=== PATIENT | female | born 1970 | race Caucasian/White ===

== ENCOUNTER → 2017-04-03 | Outpatient (CLI) | payer OTHER | LOC: BMCIMAGING 10:05 | PROVIDERS: ATTEND Family Medicine | DX: N63 Unspecified lump in breast (principal) | CPT/HCPCS: G0204 ==

== ENCOUNTER 2018-04-19 19:04 | Inpatient (IN) | payer OTHER ==
--- NOTE | 2018-04-19 19:06 | EDPHY ---
H & P Time Seen by Provider: 04/19/18 19:06 HPI/ROS: CHIEF COMPLAINT: Right upper extremity swelling HISTORY OF PRESENT ILLNESS: The patient presents the ED with a 3 day history of right upper extremity swelling and tenderness. The patient denies history of fall or trauma. She denies any acute numbness or weakness. She denies chest pain or shortness of breath. She has no prior history of PE or DVT She has no risk factors for an upper extremity DVT. The patient takes no regular medications. She denies significant past medical history. REVIEW OF SYSTEMS: A comprehensive 10 point review of systems is otherwise negative aside from elements mentioned in the history of present illness. Source: Patient Exam Limitations: No limitations - Medical/Surgical History PMH: Past medical history: Noncontributory - Family History Significant Family History: No pertinent family hx - Social History Smoking Status: Never smoked - Physical Exam Exam: General Appearance: Alert, no distress Eyes: Pupils equal and round no pallor or injection ENT, Mouth: Mucous membranes moist Respiratory: There are no retractions, lungs are clear to auscultation Cardiovascular: Regular rate and rhythm Gastrointestinal: Abdomen is soft and nontender, no masses, bowel sounds normal Neurological: 5/5 strength in normal sensory function noted in all 4 extremities Skin: Warm and dry, no rashes Musculoskeletal: Neck is supple nontender Extremities: Mild asymmetric edema noted in the right biceps area. 2+ radial and ulnar pulses noted bilaterally Psychiatric: Patient is oriented X 3, there is no agitation Constitutional: Initial Vital Signs Temperature (C) 36.9 C 04/19/18 19:05 Heart Rate 74 04/19/18 19:05 Respiratory Rate 16 04/19/18 19:05 Blood Pressure 148/79 H 04/19/18 19:05 O2 Sat (%) 96 04/19/18 19:05 O2 Delivery Mode Room Air Allergies/Adverse Reactions: shellfish derived Allergy (Verified 04/19/18 19:08) Home Medications: Medication Instructions Recorded Citalopram Hydrobromide 5 mg PO DAILY 04/19/18 [Citalopram HBr] Ibuprofen [Motrin (*)] 200 - 400 mg PO TID PRN 04/19/18 Levothyroxine Sodium 88 mcg PO DAILY 04/19/18 Norethindrone-E.estradiol-Iron 1 each PO HS 04/19/18 [Blisovi Fe 1-20 Tablet] buPROPion XL [Wellbutrin Xl] 150 mg PO DAILY 04/19/18 Medical Decision Making - Diagnostics Imaging Results: Imaging Impressions Extremity Venous Study 04/19/18 19:16 Impression: Occlusive clot involving the subclavian vein and the axillary vein , with slow flow in the subsequent brachial and basilic veins. Thoracic outlet syndrome is suspected. Recommendation: Full systemic anticoagulation. The patient might be a candidate for catheter-directed venography and lysis as well as 1st rib removal. Findings and recommendations discussed with Andrés Hastings M.D., at 9:00 p.m., on April 19, 2018. Final report concurs with initial preliminary interpretation. ED Course/Re-evaluation: The patient presents the emergency department with significant swelling and pain involving her right upper extremity. The patient denies any chest pain or shortness of breath. She denies prior history of PE or DVT. The patient was noted to be neurovascularly intact in the upper extremity. The patient was taken for right upper extremity ultrasound which demonstrates extensive thrombosis throughout the right upper extremity. The radiologist does feel this is consistent with a thoracic outlet syndrome. She does feel the patient would benefit from a venogram and clot lysis. [facility] her upper extremity DVT given her pain and swelling. Patient will be started on IV heparin and admitted to the hospitalist service. Consultation was made with Dr. Eduardo Chester from the hospitalist service at 9 :10 p.m.. The patient was started on IV heparin in the emergency department. The patient should be NPO after midnight per Dr. Tavera's recommendation. Differential Diagnosis: Differential diagnosis considered includes DVT, pulmonary embolism, thoracic outlet syndrome, arterial thrombosis, cellulitis, abscess - Data Points Laboratory Results: Laboratory Results 04/19/18 21:04 04/19/18 21:04 04/19/18 04/19/18 04/19/18 21:04 21:04 21:04 WBC 11.74 10^3/uL H 10^3/uL (3.80-9.50) RBC 4.34 10^6/uL 10^6/uL (4.18-5.33) Hgb 12.7 g/dL g/dL (12.6-16.3) Hct 37.9 % L % (38.0-47.0) MCV 87.3 fL fL (81.5-99.8) MCH 29.3 pg pg (27.9-34.1) MCHC 33.5 g/dL g/dL (32.4-36.7) RDW 13.1 % % (11.5-15.2) Plt Count 318 10^3/uL 10^3/uL (150-400) MPV 9.8 fL fL (8.7-11.7) Neut % (Auto) 69.7 % % (39.3-74.2) Lymph % (Auto) 23.7 % % (15.0-45.0) [place] % (Auto) 4.8 % % (4.5-13.0) Eos % (Auto) 1.1 % % (0.6-7.6) Baso % (Auto) 0.4 % % (0.3-1.7) Nucleat RBC Rel Count 0.0 % % (0.0-0.2) Absolute Neuts (auto) 8.19 10^3/uL H 10^3/uL (1.70-6.50) Absolute Lymphs (auto) 2.78 10^3/uL 10^3/uL (1.00-3.00) Absolute Monos (auto) 0.56 10^3/uL 10^3/uL (0.30-0.80) Absolute Eos (auto) 0.13 10^3/uL 10^3/uL (0.03-0.40) Absolute Basos (auto) 0.05 10^3/uL 10^3/uL (0.02-0.10) Absolute Nucleated RBC 0.00 10^3/uL 10^3/uL (0-0.01) Immature Gran % 0.3 % % (0.0-1.1) Immature Gran # 0.03 10^3/uL 10^3/uL (0.00-0.10) PT 13.6 SEC SEC (12.0-15.0) INR 1.02 (0.83-1.16) APTT 35.1 SEC SEC (23.0-38.0) Sodium 139 mEq/L mEq/L (135-145) Potassium 4.0 mEq/L mEq/L (3.3-5.0) Chloride 105 mEq/L mEq/L (97-110) Carbon Dioxide 26 mEq/l mEq/l (22-31) Anion Gap 8 mEq/L mEq/L (8-16) BUN 10 mg/dL mg/dL (7-23) Creatinine 0.7 mg/dL mg/dL (0.6-1.0) Estimated GFR > 60 Glucose 96 mg/dL mg/dL (70-100) Calcium 9.5 mg/dL mg/dL (8.5-10.4) Medications Given: Discontinued Medications Heparin Sodium (Porcine) (Heparin Injection) 0 unit IVP EDNOW ONE Stop: 04/19/18 21:10 Last Admin: 04/19/18 21:36 Dose: 7,780 units Heparin Sodium (Porcine) (Heparin 50 Units/Ml (Premix)) 500 mls @ 0 mls/hr IV EDNOW ONE; Per Protocol PRN Reason: Protocol Stop: 04/19/18 21:10 Last Admin: 04/19/18 21:37 Dose: 500 mls Departure - Departure Disposition: [facility] Inpatient Acute Clinical Impression: DVT of right axillary vein, acute Condition: Fair
[2018-04-19] MEDS ORDERED: HEPARIN/DEXTROSE 500 ML IV ONE (21:09)
[2018-04-19] MEDS ORDERED: HEPARIN 10,000 UNIT/10 ML MDV (1,000 UNIT/ML) IVP ONE (21:09)
[2018-04-19 21:14] LABS: PLATELET COUNT 318 10^3/uL (150-400)
[2018-04-19 21:25] LABS: INR 1.02 (0.83-1.16); PROTIME(PATIENT) 13.6 SEC (12.0-15.0)
[2018-04-19] MEDS ORDERED: LORazepam 0.5 MG TAB PO PRN (22:05)
[2018-04-19] MEDS ORDERED: ACETAMINOPHEN 325 MG TAB PO PRN (22:05)
[2018-04-19] MEDS ORDERED: HYDROCODONE/APAP 5/325 TAB PO PRN (22:05)
[2018-04-19] MEDS ORDERED: ONDANSETRON 4 MG/2 ML VIAL IVP PRN (22:05)
[2018-04-19] MEDS ORDERED: HEPARIN 10,000 UNIT/10 ML MDV (1,000 UNIT/ML) IVP PRN (22:07)
[2018-04-19] MEDS ORDERED: HEPARIN/DEXTROSE 500 ML IV SCH (22:15)
--- NOTE | 2018-04-19 23:55 | PDGENHP ---
History and Physical - Chief Complaint Right arm pain and swelling - History of Present Illness Source-patient provides history appears reliable. EMR was reviewed and case discussed with ED provider. HPI - pleasant 47-year-old female with past medical history significant for hypothyroidism, anxiety and depression who presents emergency department today with complaints of 3 days history of worsening right upper extremity swelling and pain. Patient denies any injury or trauma. She denies any numbness tingling or weakness on the right side. Patient states that she initially had swelling all the way down to her hands this seemed to the improve minimally and then subsequently on had noticeable increase in swelling over her right axilla and chest. Patient denies any shortness of breath, chest pain, palpitations. Patient does note that she recently restarted her OCP for hormone regulation. History Information - Allergies/Home Medication List Allergies/Adverse Reactions: shellfish derived Allergy (Verified 04/19/18 19:08) Home Medications: Citalopram Hydrobromide [Citalopram HBr] 5 mg PO DAILY 04/19/18 [Last Taken ] Ibuprofen [Motrin (*)] 200 - 400 mg PO TID PRN 04/19/18 [Last Taken 04/18/18] Levothyroxine Sodium 88 mcg PO DAILY 04/19/18 [Last Taken 04/19/18] Norethindrone-E.estradiol-Iron [Blisovi Fe 1-20 Tablet] 1 each PO HS 04/19/18 [ Last Taken 04/18/18] buPROPion XL [Wellbutrin Xl] 150 mg PO DAILY 04/19/18 [Last Taken 04/19/18] I have personally reviewed and updated: family history, medical history, social history, surgical history - Past Medical History Additional medical history: Hypothyroidism, anxiety and depression, hormone replacement - Surgical History Additional surgical history: 2014, microdiskectomy L5-S1. age 20s foot surgery, . 2002 in 2006 - Family History Additional family history: Negative for DVT or PE. Diabetes, thyroid disorder and CAD. - Social History Smoking Status: Never smoked Alcohol Use: Occasionally Drug Use: None Additional social history: Patient is and lives with her and 2 children. Cor status-full. Review of Systems Review of Systems: ROS: 10pt was reviewed & negative except for what was stated in HPI & below Constitutional: Denies: chills, fever EENMT: Reports: other (Wears glasses). Denies: double vision, sore throat Cardiac: Reports: no symptoms Respiratory: Reports: no symptoms. Denies: cough, shortness of breath Gastrointestinal: Reports: no symptoms Genitourinary: Reports: no symptoms Muscolosketal: Reports: no symptoms Skin: Reports: no symptoms Neurological: Reports: headache (Mild). Denies: numbness, tingling, weakness Physical Exam Physical Exam: Selected Entries 04/19/18 19:05 Blood Pressure Automatic Method Heart Rate 74 Respiratory 16 Rate O2 Sat (%) 96 Temperature (C) 36.9 C Blood Pressure 148/79 H Mean Arterial 102 H Pressure (MAP) O2 Delivery Room Air Mode Temperature Oral Source Temp Pulse Resp BP Pulse Ox 36.6 C 72 16 153/85 H 95 04/19/18 22:15 04/19/18 22:15 04/19/18 22:15 04/19/18 22:15 04/19/18 22:15 Constitutional: no apparent distress Eyes: PERRL, anicteric sclera, EOMI, No scleral injection Ears, Nose, Mouth, Throat: moist mucous membranes, No poor dentition Cardiovascular: regular rate and rhythym, no murmur, rub, or gallop, pulses symmetric bilaterally, No edema Peripheral Pulses: 2+: dorsalis-pedis (R), dorsalis-pedis (L) Respiratory: no respiratory distress, no rales or rhonchi, clear to auscultation , No respiratory distress Gastrointestinal: normoactive bowel sounds, soft, non-tender abdomen, no palpable masses, No distension Genitourinary: no bladder tenderness, No michelle in urethra Skin: warm, normal color, no rashes or abrasions Musculoskeletal: full muscle strength, other (right arm swelling), No generalized weakness Neurologic: AAOx3, sensation intact bilaterally, No facial droop Psychiatric: interacting appropriately, not anxious, not encephalopathic, thought process linear Lab Data & Imaging Review 04/19/18 21:04 04/19/18 21:04 WBC 11.74 10^3/uL (3.80-9.50) H 04/19/18 21:04 RBC 4.34 10^6/uL (4.18-5.33) 04/19/18 21:04 Hgb 12.7 g/dL (12.6-16.3) 04/19/18 21:04 Hct 37.9 % (38.0-47.0) L 04/19/18 21:04 MCV 87.3 fL (81.5-99.8) 04/19/18 21:04 MCH 29.3 pg (27.9-34.1) 04/19/18 21:04 MCHC 33.5 g/dL (32.4-36.7) 04/19/18 21:04 RDW 13.1 % (11.5-15.2) 04/19/18 21:04 Plt Count 318 10^3/uL (150-400) 04/19/18 21:04 MPV 9.8 fL (8.7-11.7) 04/19/18 21:04 Neut % (Auto) 69.7 % (39.3-74.2) 04/19/18 21:04 Lymph % (Auto) 23.7 % (15.0-45.0) 04/19/18 21:04 [place] % (Auto) 4.8 % (4.5-13.0) 04/19/18 21:04 Eos % (Auto) 1.1 % (0.6-7.6) 04/19/18 21:04 Baso % (Auto) 0.4 % (0.3-1.7) 04/19/18 21:04 Nucleat RBC Rel Count 0.0 % (0.0-0.2) 04/19/18 21:04 Absolute Neuts (auto) 8.19 10^3/uL (1.70-6.50) H 04/19/18 21:04 Absolute Lymphs (auto) 2.78 10^3/uL (1.00-3.00) 04/19/18 21:04 Absolute Monos (auto) 0.56 10^3/uL (0.30-0.80) 04/19/18 21:04 Absolute Eos (auto) 0.13 10^3/uL (0.03-0.40) 04/19/18 21:04 Absolute Basos (auto) 0.05 10^3/uL (0.02-0.10) 04/19/18 21:04 Absolute Nucleated RBC 0.00 10^3/uL (0-0.01) 04/19/18 21:04 Immature Gran % 0.3 % (0.0-1.1) 04/19/18 21:04 Immature Gran # 0.03 10^3/uL (0.00-0.10) 04/19/18 21:04 PT 13.6 SEC (12.0-15.0) 04/19/18 21:04 INR 1.02 (0.83-1.16) 04/19/18 21:04 APTT 35.1 SEC (23.0-38.0) 04/19/18 21:04 Sodium 139 mEq/L (135-145) 04/19/18 21:04 Potassium 4.0 mEq/L (3.3-5.0) 04/19/18 21:04 Chloride 105 mEq/L (97-110) 04/19/18 21:04 Carbon Dioxide 26 mEq/l (22-31) 04/19/18 21:04 Anion Gap 8 mEq/L (8-16) 04/19/18 21:04 BUN 10 mg/dL (7-23) 04/19/18 21:04 Creatinine 0.7 mg/dL (0.6-1.0) 04/19/18 21:04 Estimated GFR > 60 04/19/18 21:04 Glucose 96 mg/dL (70-100) 04/19/18 21:04 Calcium 9.5 mg/dL (8.5-10.4) 04/19/18 21:04 Imaging Review: Right Upper Extremity Duplex Venous Doppler Indication: 3 to 4 days worth of arm swelling. Technique: Right upper extremity Duplex venous Doppler was performed. Findings: The jugular vein and the central subclavian veins compress normally. However, the mid to distal subclavian vein and the axillary veins demonstrate noncompressibility , with completely occlusive clot. Subsequently, basilic and brachial veins are patent, but with slow flow. They are also distended due to lack of venous outflow. Forearm veins and cephalic vein are patent. Impression: Occlusive clot involving the subclavian vein and the axillary vein , with slow flow in the subsequent brachial and basilic veins. Thoracic outlet syndrome is suspected. Recommendation: Full systemic anticoagulation. The patient might be a candidate for catheter- directed venography and lysis as well as 1st rib removal. Findings and recommendations discussed with Andrés Hastings M.D., at 9:00 p.m., on April 19, 2018. Final report concurs with initial preliminary interpretation. Assessment & Plan Assessment: Pleasant 47-year-old female with history hypothyroidism, anxiety and depression who presents emergency department with complaints of 3 day history of increasing right arm swelling and pain. #DVT of right axillary vein, acute (Acute) - cause of DVT differential including thoracic outlet syndrome versus recent initiation of OCPs. Patient without any history of tobacco abuse. No family history of recurrent DVTs. Patient was started on a heparin drip. She has been made NPO after midnight in anticipation for procedure with Dr. Tavera for venography and possible thrombolysis. #Right arm pain - secondary to DVT and swelling. Elevate extremity on heparin drip as above. Pain medications p.r.n.. Chronic medical issues #Hypothyroidism - resume patient's levothyroxine when her diet is advanced again. #Anxiety/depression - continue patient's citalopram and Wellbutrin. FEN - diet until midnight then npo. electrolytes adequate no replacement needed. PPX - SCDs. heparin gtt. COR - FULL. Dispo - Patient admitted to inpatient status med/surge. Anticipate > 2 midnight stay particularly with thrombolysis. postop patient will likely require transfer to ICU for Eko tx.
[2018-04-20 04:28] LABS: PLATELET COUNT 282 10^3/uL (150-400)
[2018-04-20 04:41] LABS: INR 1.07 (0.83-1.16); PROTIME(PATIENT) 14.1 SEC (12.0-15.0)
--- NOTE | 2018-04-20 09:44 | PDMN ---
Medical Necessity Medical necessity: Pt meets inpt criteria per MD order and Vascular Disease GRG. 47 y/o presenting w/increasing RUE pain and swelling, admitted w/acute DVT of R axillary vein. Heparin gtt started, NPO for venography and possible thrombolysis this AM, pain management, anticipate>2MN for further eval/ management of above condition.
[2018-04-20] MEDS ORDERED: PROTAMINE SULFATE 50 MG/5 ML VIAL IVP PRN ×2 (10:30→15:27)
[2018-04-20] MEDS ORDERED: fentaNYL 100 MCG/2 ML INJ IVP PRN ×2 (10:30→15:27)
[2018-04-20] MEDS ORDERED: HEPARIN 10,000 UNIT/10 ML MDV (1,000 UNIT/ML) IVP PRN ×2 (10:30→15:27)
[2018-04-20] MEDS ORDERED: FLUMAZENIL 0.5 MG/5 ML MDV IVP PRN ×2 (10:30→15:27)
[2018-04-20] MEDS ORDERED: NALOXONE HCL 0.4 MG/ML INJ IVP PRN ×2 (10:30→15:27)
[2018-04-20] MEDS ORDERED: GLUCAGON HCL 1 MG VIAL IVP PRN ×2 (10:30→15:27)
[2018-04-20] MEDS ORDERED: MIDAZOLAM 2 MG/2 ML VIAL IVP PRN ×2 (10:30→15:27)
[2018-04-20] MEDS ORDERED: MEPERIDINE 25 MG/ML SYR IVP PRN ×2 (10:30→15:27)
[2018-04-20] MEDS ORDERED: ALTEPLASE 2 MG VIAL IVP PRN ×2 (10:30→15:27)
[2018-04-20 11:49] LABS: INR 1.05 (0.83-1.16); PROTIME(PATIENT) 13.9 SEC (12.0-15.0)
[2018-04-20] MEDS: NS 1,000 ML IV SCH ×2 (12:01)
--- NOTE | 2018-04-20 12:41 | HOSPPROG ---
Hospitalist Progress Note Assessment/Plan: Pleasant 47-year-old female with history hypothyroidism, anxiety and depression who presents emergency department with complaints of 3 day history of increasing right arm swelling and pain. #DVT of right axillary vein, acute (Acute) - cause of DVT differential including thoracic outlet syndrome versus recent initiation of OCPs. -Patient without any history of tobacco abuse. -No family history of recurrent DVTs. -heparin drip. -NPO for IR with Dr. Tavera for venography and possible thrombolysis. #Right arm pain - secondary to DVT and swelling. -Elevate extremity on heparin drip as above. -Pain medications p.r.n. #Left leg pain -US ordered #Hypothyroidism - resume patient's levothyroxine when her diet is advanced again. #Anxiety/depression -reviewed meds has been weening off -will give as previoudly taking FEN - regular after procedure PPX - SCDs. heparin gtt. COR - FULL. Dispo - Patient admitted to inpatient status med/surge. Anticipate > 2 midnight stay particularly with thrombolysis. postop patient will likely require transfer to ICU for Eko tx. Subjective: Feeling ok. Anxious. Complaints of left leg pain. Objective: Vital Signs Temp Pulse Resp BP Pulse Ox 36.8 C 62 16 139/78 H 94 04/20/18 11:24 04/20/18 11:24 04/20/18 11:24 04/20/18 11:24 04/20/18 11:24 Laboratory Results 04/20/18 04:15 04/20/18 04:30 PT 13.9 SEC (12.0-15.0) 04/20/18 11:05 INR 1.05 (0.83-1.16) 04/20/18 11:05 - Physical Exam Constitutional: no apparent distress, appears nourished, not in pain Eyes: PERRL, anicteric sclera, EOMI Ears, Nose, Mouth, Throat: moist mucous membranes, hearing normal, ears appear normal Cardiovascular: regular rate and rhythym, No JVD, No edema Respiratory: no respiratory distress, no rales or rhonchi, reduced air movement Gastrointestinal: normoactive bowel sounds, No ascites, No distension Skin: warm, normal color, No erythema Musculoskeletal: full muscle strength, normal joint ROM, no joint effusions Neurologic: AAOx3 Psychiatric: interacting appropriately, not anxious, not encephalopathic ICD10 Worksheet Patient Problems: Problems Problem Status Onset DVT of right axillary vein, acute Acute
--- NOTE | 2018-04-20 13:58 | ASMTCMCOM ---
CM Note CM Note Notes: CM reviewed Pt's chart for d/c planning. Pt is a 47 y/o female who came to the ED following 3 days of right upper extremity swelling and tenderness. Past medical hx for hypothyroidism, depression and anxiety. An Extremity Venous Study showed an occlusive clot involving the subclavian vein and axillary vein, with slow flow in the subsequent brachial and basilic veins. Cause of DVT differential including thoracic outlet syndrome vs recent initiation of OCPs. Pt lives independently with her in [place]. She is employed by [employer]. No CM needs have been identified. CM will follow for changes. D/C Plan: Independent Date Signed: 04/20/2018 01:58 PM Electronically Signed By:Anca José
[2018-04-20] MEDS ORDERED: IOPAMIDOL (ISOVUE-300) 100 ML BTL ONE (15:37)
[2018-04-20] MEDS ORDERED: ALTEPLASE 5 MG in NS 100 ML IV ONE (16:15)
[2018-04-20] MEDS ORDERED: PROMETHAZINE HCL 25 MG/ML INJ IVP PRN (16:22)
[2018-04-20] MEDS ORDERED: LORazepam 1 MG TAB PO PRN (16:22)
--- NOTE | 2018-04-20 16:27 | PDRADPN ---
Radiology Procedure Note Date of Procedure: 04/20/18 Radiologist: Monae Tavera Anesthesia: IV Sedation Pre-op Diagnosis: subclavian clot Post-op Diagnosis: same Indication: arm swelling Procedure: venogram with lysis Finding(s): thoracic outlet syndrome Inf/Abcess present in the surg proc area at time of surgery?: No
[2018-04-20] MEDS ORDERED: HEPARIN/DEXTROSE 500 ML IV SCH (16:30)
--- NOTE | 2018-04-20 16:59 | SOAPPROG ---
SOAP Progress Note Assessment/Plan: Assessment/plan: 47 y/o F s/p venogram with lysis of R subclavian clot likely due to thoracic outlet syndrome. Was asked to see pt by Dr. Tavera for possible first rib resection. Discussed surgery with pt. She will follow up with us as an outpatient after this hospitalization to discuss surgery further. O: Alert Afebrile RRR No increased WOB RUE: 3+edema, +radial pulse, full strength, nontender, catheter in place with tpa. 04/20/18 16:55 Objective: Vital Signs Temp Pulse Resp BP Pulse Ox 37.2 C 63 16 131/74 H 96 04/20/18 15:29 04/20/18 15:29 04/20/18 15:29 04/20/18 16:25 04/20/18 16:25 Laboratory Results 04/20/18 04:15 04/20/18 04:30 PT 13.9 SEC (12.0-15.0) 04/20/18 11:05 INR 1.05 (0.83-1.16) 04/20/18 11:05 ICD10 Worksheet Patient Problems: Problems Problem Status Onset DVT of right axillary vein, acute Acute
[2018-04-20] MEDS: ALTEPLASE 5 MG in NS 100 ML IV SCH (20:38)
[2018-04-21] MEDS: ALTEPLASE 5 MG in NS 100 ML IV SCH (04:53)
[2018-04-21 05:06] LABS: PLATELET COUNT 237 10^3/uL (150-400)
[2018-04-21] MEDS ORDERED: LEVOTHYROXINE 88 MCG TAB PO SCH (09:00)
[2018-04-21] MEDS ORDERED: CITALOPRAM HYDROBROMIDE 5 MG PO SCH (09:00)
[2018-04-21] MEDS ORDERED: buPROPion XL 150 MG TAB PO SCH (09:00)
[2018-04-21] MEDS: NS 1,000 ML IV SCH (09:32)
--- NOTE | 2018-04-21 10:52 | PDRADPN ---
Radiology Procedure Note Date of Procedure: 04/21/18 Radiologist: Monae Tavera Pre-op Diagnosis: RUE CLOT Post-op Diagnosis: SAME, TOS Indication: LYSIS FOLLOW UP Procedure: Venogram Finding(s): Thoracic Outlet Syndrome confirmed. Complete clot resolution. High grade stenosis at central subclavian vein. Inf/Abcess present in the surg proc area at time of surgery?: No
[2018-04-21] MEDS ORDERED: ENOXAPARIN 100 MG/ML SYR SC SCH (11:00)
--- NOTE | 2018-04-21 11:24 | HOSPPROG ---
Hospitalist Progress Note Assessment/Plan: Pleasant 47-year-old female with history hypothyroidism, anxiety and depression who presents emergency department with complaints of 3 day history of increasing right arm swelling and pain. #DVT of right axillary vein, acute - 2/2 thoracic outlet syndrome plus recent initiation of ocp. S/P thrombolysis per IR -transitioned off heparin to lovenox #Right arm pain - secondary to DVT and swelling. -Elevate extremity -Pain medications p.r.n. #Left leg pain - LE us neg for DVT #Hypothyroidism - cont levothyroxine #Anxiety/depression - cont home meds PPX - SCDs. heparin gtt. COR - FULL Dispo - cont inpt, can transfer to med/surg, off heparin drip Objective: Vital Signs Temp Pulse Resp BP Pulse Ox 37.1 C 63 18 112/66 92 04/21/18 08:00 04/21/18 08:00 04/21/18 08:00 04/21/18 08:00 04/21/18 08:00 Laboratory Results 04/21/18 04:30 04/20/18 04:30 04/20/18 04/21/18 04/22/18 05:59 05:59 05:59 Intake Total 1679.7 0 Output Total 400 Balance 1279.7 0 PT 13.9 SEC (12.0-15.0) 04/20/18 11:05 INR 1.05 (0.83-1.16) 04/20/18 11:05 ICD10 Worksheet Patient Problems: Problems Problem Status Onset DVT of right axillary vein, acute Acute
[2018-04-21 11:36] VITALS: BP 128/67
--- NOTE | 2018-04-26 09:31 | GDS ---
DISCHARGE DIAGNOSES: 1. Acute deep vein thrombosis of the right axillary vein secondary to thoracic outlet syndrome and o ral contraceptive pill. 2. Hypothyroidism. 3. Anxiety, depression. CONSULTANTS: Monae Tavera MD, interventional radiology. HISTORY OF DETAILS: Please see history and physical dated April 19, 2018. In brief, the patient is a 47-year-old female with a history of hypothyroidism, anxiety and depression, who presented to [facility] emergency department with right upper extremity swelling, pain. Ultrasound revealed an acute DVT. She was admitted to the hospital for further management. HOSPITAL COURSE: The patient was admitted to the med/surg unit. Given her significant clot burden, pain and swelling, interventional radiology consult was obtained. She was placed on a heparin drip a nd then underwent evaluation for possible thrombolysis. Venography performed by Dr. Silvestre Tavera confirmed thoracic outlet syndrome which was likely contributory to her acute DVT. In addition, I suspect her oral contraceptive hormone use may have been an additional risk factor. She underwent thrombolysis followed by ongoing heparin drip and was transitioned to Lovenox. The plan is for her to continue 2 weeks of Lovenox therapy. In the meantime, she will have followup with Dr. Ady Hanks, general [facility], to discuss 1st rib resection. After her surgery, she can be transitioned to a novel oral anti coagulant such as Eliquis once this is deemed safe postoperatively by Surgery. We discussed her ongoing use of the oral contraceptive pill. She is not using this for contraception but rather for jeancarlos menopausal symptoms. She will have ongoing discussions with her primary care pr ovider to weigh the risks and benefits of ongoing oral contraceptive use. For now, she is anticoagul ated. However, if this clot is considered to be provoked in the setting of thoracic outlet syndrome or oral contraceptive use and she takes steps to resolve these issues including 1st rib resection and consideration of discontinuing oral contraception, she could be a candidate for 3-6 months of antico agulation rather than lifelong. I recommend she consider referral to a balance wheel arm burnisher to have ongoing discussions about the duration of anticoagulation. DISPOSITION: Patient is discharged home in stable condition. FOLLOWUP: 1. Olamide Hilton MD., primary care. 2. Maik Hanks MD., general surgery. DISCHARGE MEDICATIONS: Please see [facility] completed outpatient medication list. Medications on dis charge include: 1. Lovenox 100 mg subcutaneous b.i.d., #28 no refills. This is a 2-week supply to allow her time to make plans for surgery. She will need a prescription for Eliquis or another oral anticoagulant in t he postop phase. 2. Hydrocodone 1-2 tabs p.o. q.6 hours p.r.n. #10 no refills. She will continue all other outpatient medications as prescribed. However, at this point, we have op brianna to hold her oral contraceptive pill pending further discussions with her outpatient primary care provider. /[id number]/MODL
== END 2018-04-21 14:15 | disposition home or self-care (01) | DRG 301 ==
LOC: F3E 22:10 → F2N 04-20 15:20
PROVIDERS: ADMIT Internal Medicine; ATTEND Internal Medicine
PROC: B51M1ZZ Fluoroscopy of Right Upper Extremity Veins using Low Osmolar Contrast (ICD-10-PCS; principal; 2018-04-20)
PROC: 3E03317 Introduction of Other Thrombolytic into Peripheral Vein, Percutaneous Approach (ICD-10-PCS; principal; 2018-04-20)
DX: I82.621 Acute embolism and thrombosis of deep veins of right upper extremity (principal); G54.0 Brachial plexus disorders; M79.605 Pain in left leg; E03.9 Hypothyroidism, unspecified; Z79.890 Hormone replacement therapy; F41.8 Other specified anxiety disorders; Z23 Encounter for immunization
CPT/HCPCS: 85520-90; 96374; C1769; G0008; J1644; J1650; J2250; J2270; J2310; J2997; J3010; Q9967

== ENCOUNTER 2018-05-01 12:13 | Inpatient (IN) | payer OTHER ==
--- NOTE | 2018-05-01 11:51 | PDHPUP ---
History & Physical Update H&P update statement: This history and physical update is based on an assessment of the patient which was completed after admission or registration (within 24 hours), but prior to the surgery/procedure. H&P update: H&P reviewed & patient examined, no change in patient's condition since H&P completed
[2018-05-01] MEDS ORDERED: ceFAZolin 2 GM/DEXTROSE 100 ML IV ONE (12:21)
[2018-05-01] MEDS ORDERED: LR 1,000 ML IV ONE (12:23)
[2018-05-01] MEDS ORDERED: THROMBIN (BOVINE) 5,000 UNIT VIAL TP ONE (12:50)
[2018-05-01] MEDS ORDERED: BUPIVACAINE 0.5% 30 ML SDV ONE (12:50)
[2018-05-01 13:22] LABS: INR 1.22 (0.83-1.16); PROTIME(PATIENT) 15.6 SEC (12.0-15.0)
[2018-05-01] MEDS ORDERED: MIDAZOLAM 2 MG/2 ML VIAL IVP ONE (14:00)
--- NOTE | 2018-05-01 14:01 | PDANEPAE ---
ANE History of Present Illness here for first rib resection ANE Past Medical History - Cardiovascular History Hx Hypertension: No Hx Arrhythmias: No Hx Chest Pain: No Hx Coronary Artery / Peripheral Vascular Disease: No Hx CHF / Valvular Disease: No Hx Palpitations: No - Pulmonary History Hx COPD: No Hx Asthma/Reactive Airway Disease: No Hx Recent Upper Respiratory Infection: No Hx Oxygen in Use at Home: No Hx Sleep Apnea: No - Neurologic History Hx Cerebrovascular Accident: No Hx Seizures: No Hx Dementia: No - Endocrine History Hx Diabetes: No - Renal History Hx Renal Disorders: No - Liver History Hx Hepatic Disorders: No - Neurological & Psychiatric Hx Hx Neurological and Psychiatric Disorders: Yes Neurological / Psychiatric History Comment: Depression - Cancer History Hx Cancer: No - Congenital Disorder History Hx Congenital Disorders: Yes Congenital History Comment: jaundice when born - GI History Hx Gastrointestinal Disorders: No - Chronic Pain History Chronic Pain: No - Surgical History Prior Surgeries: disectomy 2014, 2006 & 2001, bilateral bone spur removal 1990, lasix ANE Review of Systems Review of systems is: negative Review of Systems: - Exercise capacity Exercise capacity: >=4 METS METS (RN): 4 METS ANE Patient History - Allergies Allergies/Adverse Reactions: shellfish derived Allergy (Verified 05/01/18 12:43) - Home Medications Home medications: home medication list seen and reviewed Home Medications: Ibuprofen [Motrin (*)] 200 - 400 mg PO TID PRN 04/19/18 [Last Taken 04/18/18] Levothyroxine Sodium 88 mcg PO DAILY 04/19/18 [Last Taken 05/01/18 06:00] buPROPion XL [Wellbutrin 150mg XL] 150 mg PO DAILY 04/19/18 [Last Taken 06:00] Eliquis 05/01/18 [Last Taken 04/29/18] - NPO status NPO Status: no food or drink >8 hours NPO Since - Liquids (Date): 04/30/18 NPO Since - Liquids (Time): 22:00 NPO Since - Solids (Date): 04/30/18 NPO Since - Solids (Time): 20:30 - Smoking Hx Smoking Status: Never smoked - Family Anes Hx Family Hx Anesthesia Complications: none. ANE Labs/Vital Signs - Labs Result Diagrams: 05/01/18 12:21 05/01/18 13:25 - Vital Signs Vital Signs: reviewed preoperatively; see RN documention for details Blood Pressure: 123/76 Heart Rate: 75 Respiratory Rate: 18 O2 Sat (%): 95 Height: 167.64 cm Weight: 95.254 kg ANE Physical Exam - Airway Neck exam: FROM Mallampati Score: Class 1 Mouth exam: normal dental/mouth exam - Pulmonary Pulmonary: no respiratory distress - Cardiovascular Cardiovascular: regular rate and rhythym - ASA Status ASA Status: II ANE Anesthesia Plan Anesthesia Plan: general endotracheal anesthesia
[2018-05-01] MEDS ORDERED: PROPOFOL/EMULSION 500 MG/50 ML BOTTLE IV ONE ×2 (14:15→14:39)
[2018-05-01] MEDS ORDERED: fentaNYL 100 MCG/2 ML INJ ONE ×2 (14:22→16:17)
[2018-05-01] MEDS ORDERED: HYDROmorphONE/DILAUDID 2 MG/ML INJ ONE ×2 (15:12→16:44)
[2018-05-01] MEDS ORDERED: HYDROmorphONE/DILAUDID 1 MG/ML INJ IVP PRN (16:04)
[2018-05-01] MEDS ORDERED: ONDANSETRON 4 MG/2 ML VIAL IVP PRN ×2 (16:04→16:16)
--- NOTE | 2018-05-01 16:07 | POSTOPPROG ---
Post Op Note Date of Operation: 05/01/18 Surgeon: Maik Hanks Production Stage Manager: Mei Blakely Anesthesiologist: Rudy Askew Anesthesia: GET(General Endotracheal) Pre-op Diagnosis: TOS, RUE DVT Post-op Diagnosis: same Procedure: transaxillary R 1st rib resection Findings: rib resected; nerve, artery and vein well protected Inf/Abcess present in the surg proc area at time of surgery?: No EBL: Minimal Complications: none Specimen(s): R 1st rib to pathology
--- NOTE | 2018-05-01 16:14 | POSTANESTH ---
Post Anesthetic Evaluation Cardiovascular Status: Normal, Stable Respiratory Status: Normal, Stable Level of Consciousness/Mental Status: Can Participate in Eval Pain Control: Adequate, Prn Tx Ordered Nausea/Vomiting Control: Adequate, Prn Tx Ordered Complications Possibly Related to Anesthesia: None Noted
[2018-05-01] MEDS ORDERED: D5W 1/2 NS 1,000 ML IV SCH (16:15)
[2018-05-01] MEDS ORDERED: ACETAMINOPHEN 500 MG TAB PO PRN (16:16)
[2018-05-01] MEDS ORDERED: DEXAMETHASONE 4 MG/ML VIAL IVP PRN (16:16)
[2018-05-01] MEDS ORDERED: KETOROLAC 15 MG/1 ML SDV ONE (16:16)
[2018-05-01] MEDS ORDERED: HYDROCODONE/APAP 5/325 TAB PO PRN (16:16)
[2018-05-01] MEDS ORDERED: ALBUTEROL 3 ML DEYVIAL IH PRN (16:16)
[2018-05-01] MEDS ORDERED: oxyCODONE IR 5 MG TAB PO PRN (16:16)
[2018-05-01] MEDS ORDERED: NALOXONE HCL 0.4 MG/ML INJ IVP PRN (16:16)
[2018-05-01] MEDS: fentaNYL 100 MCG/2 ML INJ IVP PRN ×2 (16:21→16:31)
[2018-05-01] MEDS: KETOROLAC 15 MG/1 ML SDV IVP SCH ×2 (16:21→22:11)
[2018-05-01] MEDS: HYDROmorphONE/DILAUDID 2 MG/ML INJ IVP PRN ×3 (16:47→17:11)
[2018-05-01] MEDS: OXYCODONE/APAP 5/325 TAB PO PRN (19:19)
[2018-05-01] MEDS ORDERED: HYDROmorphONE/DILAUDID 2 MG/ML INJ IVP PRN (22:00)
[2018-05-01] MEDS: DOCUSATE SODIUM 100 MG CAP PO SCH (22:11)
[2018-05-02] MEDS: OXYCODONE/APAP 5/325 TAB PO PRN ×2 (01:47→14:42)
[2018-05-02] MEDS: KETOROLAC 15 MG/1 ML SDV IVP SCH ×4 (04:16→21:10)
[2018-05-02] MEDS: ENOXAPARIN 40 MG/0.4 ML SYR SC SCH (09:58)
[2018-05-02] MEDS: DOCUSATE SODIUM 100 MG CAP PO SCH ×2 (09:59→21:10)
[2018-05-02] MEDS: LEVOTHYROXINE 88 MCG TAB PO SCH (09:59)
[2018-05-02] MEDS: buPROPion XL 150 MG TAB PO SCH (09:59)
--- NOTE | 2018-05-02 13:02 | SOAPPROG ---
SOAP Progress Note Assessment/Plan: Assessment: 47 y/o F s/p right first rib resection for TOS POD #1 S: Doing well overall. Reports she had significant pain immediately after surgery, but is well controlled now with Percocet. O: Alert Afebrile RRR Chest CTA bilaterally, no increased WOB, dressing cdi RUE: moderate swelling, full strength in hand, + radial pulse Plan: Likely home tomorrow. 05/02/18 12:59 Objective: Vital Signs Temp Pulse Resp BP Pulse Ox 36.9 C 78 16 106/58 L 91 L 05/02/18 08:00 05/02/18 08:00 05/02/18 08:00 05/02/18 08:00 05/02/18 08:00 Laboratory Results 05/02/18 04:10 05/02/18 04:10 05/01/18 05/02/18 05/03/18 05:59 05:59 05:59 Intake Total 2610 1392 Output Total 1615 900 Balance 995 492 PT 15.6 SEC (12.0-15.0) H 05/01/18 12:21 INR 1.22 (0.83-1.16) H 05/01/18 12:21 ICD10 Worksheet Patient Problems: Problems Problem Status Onset DVT of right axillary vein, acute Acute
--- NOTE | 2018-05-02 14:42 | PDMN ---
Medical Necessity Medical necessity: Change to inpt as of 05/02/18 @ 1415. Pt meets inpt criteria per MD order and Thoracic Surgery or Procedure [facility], CPT [address] Division of [facility]; with resection of cervical rib, Medicare inpt only list. 47 y/ o s/p R first rib resection for thoracic outlet syndrome. IVF, IV ABX's, IV Toradol, anticipate>2MN for ongoing post-op care.
--- NOTE | 2018-05-02 14:56 | ASMTCMCOM ---
CM Note CM Note Notes: Pt admitted for a scheduled surgery. She lives at home with her and works, no therapies ordered. Anticipate she will dc home w/support of when medically stable. CM available for any changes. DC Plan: Independent Date Signed: 05/02/2018 02:55 PM Electronically Signed By:Katya Rosales RN
[2018-05-03] MEDS: KETOROLAC 15 MG/1 ML SDV IVP SCH ×4 (04:30→21:37)
[2018-05-03] MEDS: ENOXAPARIN 40 MG/0.4 ML SYR SC SCH (08:03)
[2018-05-03] MEDS: buPROPion XL 150 MG TAB PO SCH (08:03)
[2018-05-03] MEDS: LEVOTHYROXINE 88 MCG TAB PO SCH (08:03)
[2018-05-03] MEDS: DOCUSATE SODIUM 100 MG CAP PO SCH ×2 (08:03→21:38)
--- NOTE | 2018-05-03 08:50 | SOAPPROG ---
SOAP Progress Note Assessment/Plan: Assessment: 47 y/o F s/p right first rib resection for TOS POD #2. Was called yesterday afternoon for increased edema in bilateral upper extremities and face. Chest xray was clear, H&H stable and repeat RUE ultrasound negative for recurrent thrombus. S: Puffiness down today. Pain well controlled with toradol and percocet. Would like to see how day goes and possibly go home today or tomorrow. O: Alert Afebrile RRR Chest CTA bilaterally, no increased WOB, dressing cdi RUE: moderate swelling, full strength in hand, + radial pulse Plan: Home later today or tomorrow. 05/03/18 08:48 Objective: Vital Signs Temp Pulse Resp BP Pulse Ox 36.8 C 67 16 131/73 H 91 L 05/03/18 07:14 05/03/18 07:14 05/03/18 07:14 05/03/18 07:14 05/03/18 07:14 Laboratory Results 05/02/18 17:26 05/02/18 04:10 05/02/18 05/03/18 05/04/18 05:59 05:59 05:59 Intake Total 2610 1392 Output Total 1615 2700 Balance 995 -1308 PT 15.6 SEC (12.0-15.0) H 05/01/18 12:21 INR 1.22 (0.83-1.16) H 05/01/18 12:21 ICD10 Worksheet Patient Problems: Problems Problem Status Onset DVT of right axillary vein, acute Acute
[2018-05-03] MEDS ORDERED: APIXABAN 5 MG TAB PO SCH (11:30)
[2018-05-03] MEDS: OXYCODONE/APAP 5/325 TAB PO PRN ×2 (13:08→18:39)
[2018-05-03] MEDS: APIXABAN 5 MG TAB PO SCH (21:38)
--- NOTE | 2018-05-03 23:10 | SOAPPROG ---
SOAP Progress Note Assessment/Plan: Assessment: Doing well status post right 1st rib resection Chest x-ray clear/hematocrit stable Ultrasound the arm shows no venous Re occlusion despite some swelling in her right arm Good range of motion full use of her right arm Plan: Restart Eliquis and home in the a.m. 05/03/18 23:09 Objective: Vital Signs Temp Pulse Resp BP Pulse Ox 37.1 C 77 16 122/70 H 91 L 05/03/18 14:58 05/03/18 14:58 05/03/18 14:58 05/03/18 14:58 05/03/18 14:58 Laboratory Results 05/02/18 17:26 05/02/18 04:10 05/02/18 05/03/18 05/04/18 05:59 05:59 05:59 Intake Total 2610 1392 Output Total 1615 2700 Balance 995 -1308 PT 15.6 SEC (12.0-15.0) H 05/01/18 12:21 INR 1.22 (0.83-1.16) H 05/01/18 12:21 ICD10 Worksheet Patient Problems: Problems Problem Status Onset DVT of right axillary vein, acute Acute
[2018-05-04] MEDS: KETOROLAC 15 MG/1 ML SDV IVP SCH (04:23)
[2018-05-04 07:06] VITALS: BP 137/72
--- NOTE | 2018-05-04 07:20 | SOAPPROG ---
SOAP Progress Note Assessment/Plan: Assessment: Doing well status post right 1st rib resection Chest x-ray clear/hematocrit stable Ultrasound the arm shows no venous Re occlusion despite some swelling in her right arm Good range of motion full use of her right arm Plan: Restart Eliquis and home in the a.m. 05/03/18 23:09 05/04/18 07:20 Comfortable/breath sounds equal/eating well/pain control adequate / home today Objective: Vital Signs Temp Pulse Resp BP Pulse Ox 36.7 C 69 16 137/72 H 91 L 05/04/18 07:04 05/04/18 07:04 05/04/18 07:04 05/04/18 07:04 05/04/18 07:04 Laboratory Results 05/02/18 17:26 05/02/18 04:10 05/03/18 05/04/18 05/05/18 05:59 05:59 05:59 Intake Total 1392 Output Total 2700 Balance -1308 PT 15.6 SEC (12.0-15.0) H 05/01/18 12:21 INR 1.22 (0.83-1.16) H 05/01/18 12:21 ICD10 Worksheet Patient Problems: Problems Problem Status Onset DVT of right axillary vein, acute Acute
[2018-05-04] MEDS: LEVOTHYROXINE 88 MCG TAB PO SCH (07:25)
[2018-05-04] MEDS: APIXABAN 5 MG TAB PO SCH (08:55)
[2018-05-04] MEDS: buPROPion XL 150 MG TAB PO SCH (08:55)
[2018-05-04] MEDS: DOCUSATE SODIUM 100 MG CAP PO SCH (09:01)
== END 2018-05-04 10:21 | disposition home or self-care (01) | DRG 30 ==
LOC: INTOOBSV 12:13 → F3N 12:13 → F3E 17:34 → OBSVTOIN 05-02 14:15
PROVIDERS: ADMIT Surgery; ATTEND Surgery
PROC: 0PT10ZZ Resection of 1 to 2 Ribs, Open Approach (ICD-10-PCS; principal; 2018-05-01 14:30)
DX: G54.0 Brachial plexus disorders (principal); F32.9 Major depressive disorder, single episode, unspecified
CPT/HCPCS: G0378; J0690; J1170; J1650; J1885; J2250; J2704; J3010

== ENCOUNTER → 2018-07-02 | Outpatient (CLI) | payer OTHER | LOC: FIMAGING 13:42 | PROVIDERS: ATTEND Family Medicine | DX: Z12.31 Encounter for screening mammogram for malignant neoplasm of breast (principal) ==

== ENCOUNTER → 2018-07-13 | Day surgery (SDC) | payer OTHER ==
[~2018-07-13] MED LIST: IOPAMIDOL (ISOVUE-300) 100 ML BTL ONE
== END | disposition home or self-care (01) ==
LOC: FIMAGING 14:09
PROVIDERS: ATTEND Radiology Diagnostic Radiology
DX: I87.1 Compression of vein (principal); Z79.01 Long term (current) use of anticoagulants; Z90.89 Acquired absence of other organs
CPT/HCPCS: 37248; 75820; 76937; C1769; C1894; C1725; J1644; Q9967

== ENCOUNTER → 2018-07-23 | Day surgery (SDC) | payer OTHER ==
[~2018-07-23] MED LIST changes: +ACETAMINOPHEN 325 MG TAB PO PRN; +FLUMAZENIL 0.5 MG/5 ML MDV IVP ONE; +FLUMAZENIL 0.5 MG/5 ML MDV IVP PRN; +MIDAZOLAM 2 MG/2 ML VIAL IVP PRN; +MIDAZOLAM 2 MG/2 ML VIAL ONE; +NALOXONE HCL 0.4 MG/ML INJ IVP PRN; +NALOXONE HCL 0.4 MG/ML INJ ONE; +NS 1,000 ML IV SCH; +ONDANSETRON 4 MG/2 ML VIAL IVP PRN; +fentaNYL 100 MCG/2 ML INJ IVP PRN; +fentaNYL 100 MCG/2 ML INJ ONE
--- NOTE | 2018-07-23 10:46 | PDRADPRE ---
Radiology History & Physical Indication for procedure: other (thoracic outlet syndrome) Home medications: Levothyroxine Sodium 88 mcg PO DAILY 04/19/18 [Last Taken 07/22/18] Allergies/Adverse Reactions: shellfish derived Allergy (Intermediate, Verified 06/18/18 12:06) Mental status: A&Ox3
--- NOTE | 2018-07-23 10:47 | PDPROPOC ---
Sedation Plan of Care ASA Classification: ASA 2 Mallampati Score: Class 2 Mallampati Reference Image:
--- NOTE | 2018-07-23 10:48 | PDRADPN ---
Radiology Procedure Note Date of Procedure: 07/23/18 Radiologist: Nel Sprague Anesthesia: IV Sedation Pre-op Diagnosis: right subclavian scarring Post-op Diagnosis: same Procedure: venogram and plasty Finding(s): re-occlusion of right subclavian vein, plasty with 8mm and 9mm regular and 8mm cutting balloons with improved forward flow, residual collaterals seen Inf/Abcess present in the surg proc area at time of surgery?: No
[2018-07-23 12:01] VITALS: BP 142/74
== END | disposition home or self-care (01) ==
LOC: FIMAGING 07:25
PROVIDERS: ATTEND Family Medicine
PROC: 05753ZZ Dilation of Right Subclavian Vein, Percutaneous Approach (ICD-10-PCS; principal; 2018-07-23 10:57)
PROC: B54MZZA Ultrasonography of Right Upper Extremity Veins, Guidance (ICD-10-PCS; principal; 2018-07-23 10:57)
PROC: B5161ZZ Fluoroscopy of Right Subclavian Vein using Low Osmolar Contrast (ICD-10-PCS; principal; 2018-07-23 10:57)
DX: I87.1 Compression of vein (principal); Z79.01 Long term (current) use of anticoagulants; Z90.89 Acquired absence of other organs
CPT/HCPCS: 75820; 76937; 99153; C1769; C1894; C1725; J1644; J2250; J2310; J3010; Q9967

== ENCOUNTER 2018-08-06 09:39 | Day surgery (SDC) | payer OTHER ==
[2018-08-06] MEDS ORDERED: fentaNYL 100 MCG/2 ML INJ IVP PRN (10:08)
[2018-08-06] MEDS ORDERED: MIDAZOLAM 2 MG/2 ML VIAL IVP PRN (10:08)
[2018-08-06] MEDS ORDERED: FLUMAZENIL 0.5 MG/5 ML MDV IVP PRN (10:08)
[2018-08-06] MEDS ORDERED: MEPERIDINE 25 MG/ML SYR IVP PRN (10:08)
[2018-08-06] MEDS ORDERED: NALOXONE HCL 0.4 MG/ML INJ IVP PRN (10:08)
[2018-08-06] MEDS ORDERED: NS 1,000 ML IV SCH (10:15)
--- NOTE | 2018-08-06 11:32 | PDPROPOC ---
Sedation Plan of Care Sedation Plan of Care: vital signs stable, mental status noted, patient educated of risks, benefits, alternatives, patient can tolerate sedation ASA Classification: ASA 1 Planned drugs: fentanyl, midazolam Mallampati Score: Class 2 Mallampati Reference Image: Patient passed 3-3-2 rule?: Yes
--- NOTE | 2018-08-06 11:34 | PDGENHP ---
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 Repeat venogram and DUPLICATION SPECIALIST Pertinent Past, Social, Family History: non smoker. arm swelling stable. Relevant Physical Exam: no visible swelling Cardiorespiratory Assessment: rrr, cta.
[2018-08-06 13:13] VITALS: BP 119/77
== END 2018-08-06 13:50 | disposition home or self-care (01) ==
LOC: FIMAGING 09:39
PROVIDERS: ATTEND Radiology Diagnostic Radiology
DX: G54.0 Brachial plexus disorders (principal)
CPT/HCPCS: 36005; 75820; 99152; C1769; J2250; J3010